=== PATIENT | female | born 2005 | race Caucasian/White ===

== ENCOUNTER 2023-08-01 15:45 | Emergency (ER) | payer OTHER, SELFPAY ==
[2023-08-01 15:47] VITALS: BP 132/78; PULSE 112; RESP 18; TEMP 36.8; BMI 27.2
[2023-08-01 15:53] VITALS: BP 132/78; PULSE 112; RESP 18; TEMP 36.8
[2023-08-01] MEDS: Amox/Clavulanate 875 MG Tablet PO (16:51)
[2023-08-01] MEDS: Diphth,Pertuss(Acell),Tet Vac 0.5 ML Vial IM (16:51)
--- NOTE | 2023-08-01 17:05 | RAD_ITS ---
STUDY: X-RAY - RIGHT HAND, ATTENTION FIRST FINGER REASON FOR EXAM: Female, 18 years old. cat bite thumb TECHNIQUE: 3 view(s) of the finger were obtained. COMPARISON: None. FINDINGS: Normal metacarpal head. Normal metacarpophalangeal joint. Normal proximal phalanx. Normal distal phalanx. Normal interphalangeal joint. No radiopaque foreign bodies. Unremarkable soft tissues. RAD/Finger(s) Min 2 Views IMPRESSION: Normal x-ray examination of the thumb. Electronically Signed: Slim Nye MD at 17:36 EST ,
--- NOTE | 2023-08-01 17:22 | EDS_ITS ---
<Statement entered by Arleen Sweeney MD - 08/02/23 00:01> I have personally performed a face to face assessment of the patient and have reviewed the HOA Note. Patient presents secondary to cat bite to the right hand. She was helping hold a cat that was being groomed when it turned and bit her in the hand. Patient sitting upright in bed no acute distress. Right upper extremity examination significant for puncture wound to the thenar eminence near the MCP joint. No focal tenderness over the flexor or extensor tendons. Full range of motion. Right thumb x-ray obtained and reveals no obvious radiopaque foreign body. Patient treated with antibiotics. Given return instructions. HPI History of Present Illness Chief Complaint: Bite Narrative Narrative: Patient presenting due to a cat bite to her right thumb that she got this afternoon while at work. 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 Cat bit her right thumb. Cat is up-to-date with vaccinations including rabies. Patient reports that her tetanus is not up-to-date. She denies any other injury. [facility] Medical History Anxiety POTS (postural orthostatic tachycardia syndrome) Syncope Home Medications cetirizine 10 mg capsule (Zyrtec) 10 mg PO DAILY PRN 04/28/23 [History Last Taken Unknown] citalopram 30 mg capsule 30 mg PO DAILY 04/28/23 [History Last Taken Unknown] levonorgestrel 0.15 mg-ethinyl estradiol 0.03 mg tablet See Rx Instructions PO .COMPLEX 04/28/23 [History Last Taken Unknown] metoprolol tartrate 25 mg tablet 25 mg PO BID #180 tabs 06/18/23 [Rx Last Taken Unknown] amoxicillin 875 mg-potassium clavulanate 125 mg tablet 1 tab PO BID #13 tabs 08/01/23 [Rx Last Taken Unknown] fluconazole 100 mg tablet (Diflucan) 150 mg (1.5 x 100 mg) PO DAILY 1 day #2 tabs 08/01/23 [Rx Last Taken Unknown] Allergy/AdvReac Type Severity Reaction Status Date / Time sulfamethoxazole Allergy Intermediate Rash Verified 08/01/23 15:47 [From Bactrim] trimethoprim [From Bactrim] Allergy Mild Rash Verified 08/01/23 15:47 Family History Other Colon cancer Hyperthyroidism Surgical History History of kidney surgery Social History Smoking Status: Never smoker alcohol intake: never substance use type: does not use ROS ROS ED Constitutional Constitutional ED: Denies chills or fever(s) Cardiovascular Cardiovascular: Denies chest pain Respiratory/Chest Respiratory/Chest: Denies cough or dyspnea Gastrointestinal Gastrointestinal: Denies abdominal pain, nausea or vomiting Musculoskeletal Musculoskeletal: Denies arthralgias or myalgias Integumentary Reports wounds Neurologic Neurologic: Denies paresthesias EXAM Physical Exam Const Vital Signs: 08/01/23 15:47 08/01/23 15:53 Temperature 98.2 F 98.2 F Temperature Source Temporal Temporal Pulse Rate 112 H 112 H Respiratory Rate 18 18 Blood Pressure 132/78 H 132/78 H Blood Pressure Mean 96 96 Positive well nourished, well developed and no apparent distress General Appearance ED: well developed HEENT Reports normocephalic and head/scalp atraumatic Mouth ED: Yes moist mucous membranes normal Eyes PERRL and EOMs intact bilaterally Neck full ROM and supple Chest Wall inspection of chest normal Resp normal respiratory effort and clear to auscultation bilaterally Cardio regular rate and regular rhythm GI soft to palpation, non-tender, non-distended and no masses Back/Spine normal ROM and normal to inspection Extremity full ROM Extremity Narrative: Small puncture wound to the palmar aspect of the right first finger along the MCP joint. Full flexion and extension at the right first MCP and IP joint. No erythema, no signs of flexor tenosynovitis. No purulent discharge. No pain to palpation to the right thumb. Neuro oriented x3, CN's II-XII intact bilaterally, moves all extremities, no focal motor deficits and no sensory deficits noted Sensorium / Orientation: awake and alert Psych mental status grossly normal and thought process normal Skin no rashes or lesions noted and no wounds MDM MDM MDM Narrative Medical decision making narrative: Patient presenting due to a cat bite to her right first finger that occurred this afternoon. She is well-appearing and in no acute distress. X-ray of the right thumb will be obtained to rule out foreign body. She will be started on Augmentin with first dose here. Tetanus will be updated. She requested a prescription for Diflucan to prevent yeast infection from the antibiotic. Wound was cleaned and bandaged by nursing. Return instructions given and she will be discharged home in stable condition. Patient is comfortable with plan. Discharge Plan Triage Chief Complaint: Bite ED Midlevel Provider: Omaira Hirsch ED Provider: Arleen Sweeney Dx/Rx/DC Orders Clinical Impression: Cat bite of finger Instructions: ED Cat Bite Prescriptions: New amoxicillin-pot clavulanate 875-125 mg tablet 1 tab PO BID Qty: 13 0RF fluconazole [Diflucan] 100 mg tablet 150 mg PO DAILY 1 Days Qty: 2 0RF No Action citalopram 30 mg capsule 30 mg PO DAILY levonorgestrel-ethinyl estrad 0.15-0.03 mg tablet See Rx Instructions PO .COMPLEX Rx Instructions: take 1 tablet daily following the order on blister card(s) PO Zyrtec 10 mg capsule 10 mg PO DAILY PRN metoprolol tartrate 25 mg tablet 25 mg PO BID Qty: 180 3RF Primary Care Provider: Zhao Webber Referrals: hZao Webber MD [Primary Care Provider] - Activity Restrictions/Additional Instructions: Please return for any worsening of your symptoms. Disposition Disposition: Home, Self Care
--- OUTSIDE RECORDS SUMMARY | 2023-08-01 19:10 | XMS RPT_ITS | CCD ---
Author Name Unknown Address [address] [place] [address] Organization [facility] Care Team Providers Care Regional Clinical Director Name Role Phone Saniya Colindres Unavailable Unavailable Unavailable Jens, Ms. Kothari Thu Primary Care UnavailALEXANDER Soliz Attending Unavailable Redick, Ms. Kothari Thu Primary Care UnavailALEXANDER Soliz Attending Unavailable Redick, Ms. Kothari Thu Primary Care Unavailabl e Jens, Ms. Kothari Thu Attending Unavailabl e Jens, Ms. Kothari Thu Primary Care Unavailshaji e ALEXANDER MEI Attending Unavailable Redick, Ms. Kothari Thu Primary Care UnavailDr. Alexander Soliz Attending Unavailable Mario, Dr. Munoz Referring Unavailable Redick, Ms. Kothari Thu Primary Care Dr. Galina Sawyer Attending Unavailab carol ann Wiseman, Dr. Galina Andino Referring Unavailab le Allergies Allergy Classification Reported Allergen(s) Allergy Type Date of Onset Reaction(s) Facility (8 sources) Sulfamethoxazole / Trimethoprim; Translations: [Bactrim] Drug Allergy [facility] Work Phone: Medications Completed/Discontinued Medications Medication Drug Class(es) Dates Sig (Normalized) Sig (Original) citalopram 10 mg oral tablet (14 sources) Serotonin Reuptake Inhibitor Citalopram Hydrobromide 20 MG Oral Tablet Quantity: 0 Refills: 0 Ordered: 06-Aug-2021 DO Active Problems Problem Classification Problem Date Documented Da te Episodic/Chronic Abdominal pain (12 sources) Abdominal pain; Translations: [Abdominal pain, unspecified site] Onset: 01-02-2022 Episodic Cardiac dysrhythmias (4 sources) Palpitations; Translations: [Palpitations] Episodic Immunizations and screening for infectious disease (6 sources) Patient encounter status; Translations: [Screening examination for venereal disease] Episodic Nausea and vomiting (8 sources) Nausea and vomiting; Translations: [Nausea with vomiting] Episodic Nonspecific chest pain (1 source) Chest pain, unspecified; Translations: [Chest pain, unspecified] Onset: 03-01-2022 Episodic Other female genital disorders (8 sources) Abnormal uterine bleeding; Translations: [Unspecified disorders of menstruation and other abnormal bleeding from female genital tract] Chronic Syncope (9 sources) Syncope and collapse; Translations: [Syncope and collapse] Onset: 03-01-2022 Episodic Results Test Name Value Interpretation Reference Range Facil ity Vital Signs Date Time Vital Sign Value Performing Clinician Faci lity 07-31-2022 14:19-0500 Body height 168 cm Saniya A Redick Work Phone: [employer] Work Phone: 07-31-2022 14:19-0500 Body mass index (BMI) [Ratio] 23.79 kg/m2 Saniya A Redick Work Phone: [employer] Work Phone: 07-31-2022 14:19-0500 Body surface area Derived from formula 1.76 m2 Saniya A Redick Work Phone: [employer] Work Phone: 07-31-2022 14:19-0500 Body weight 67.13 kg Saniya A Redick Work Phone: [employer] Work Phone: 07-31-2022 14:19-0500 Diastolic blood pressure 80 mm[Hg] Saniya A Redick Work Phone: [employer] Work Phone: 07-31-2022 14:19-0500 Systolic blood pressure 110 mm[Hg] Saniya A Redick Work Phone: [facility] Work Phone: 07-31-2022 14:19-0500 79 [phone] Saniya A Redick Work Phone: [facility] Work Phone: Encounters Encounter Date Encounter Type Care Provider Facility Start: 02-21-2023 ambulatory Ms. Saniya Andino Redick Fa cility:[id number] Start: 07-31-2022 ambulatory Ms. Saniya Andino Redick Fa cility:[id number] Start: 07-31-2022 Patient encounter procedure Saniya A Redick Work Phone: [facility] [employer] Work Phone: Start: 03-11-2022 AUDIT Saniya A Redick Work Phone: [place] [phone] [employer] Work Phone: Start: 03-07-2022 ambulatory Ms. Saniya Andino Redick Fa cility:[id number] Start: 03-01-2022 ambulatory Ms. Saniya Thu Redick Fa cility:[id number] Start: 02-22-2022 ambulatory Ms. Saniya Thu Redick Fa cility:[id number] Start: 02-22-2022 Office outpatient ne w 45 minutes Saniya A Redick Work Phone: [place] [phone] [employer] Work Phone: Start: 01-02-2022 ambulatory Ms. Saniya Andino Redick Fa cility:[id number] Start: 08-06-2021 Office outpatient vi sit 10 minutes Saniya A Redick Work Phone: [facility] [employer] Work Phone: Start: 07-23-2021 AUDIT Saniya A Redick Work Phone: [facility] [employer] Work Phone: Menarche Saniya A Redick Work Phone: [place] [phone] [employer] Work Phone: Procedures Date Procedure Procedure Detail Performing Clinician Start: 03-01-2022 Echocardiography Saniya Colindres Work Phone: Kidney operation Saniya Davis ick Work Phone: Plan of Treatment Date Care Activity Detail Author Start: 02-21-2023 FUV, Provider: Alexander Mei, Status: Pen, Time: 8:30 AM FUV, Provider: Alexander Mei, Status: Pen, Time: 8:30 AM [id number] Work Phone: Start: 08-07-2022 Patient encounter procedure ANNUAL, Provider: Indra Arreaga, Status: Pen, Time: 11:15 AM [employer] Work Phone: Start: 03-11-2022 NPV, Provider: Babak Hilliard, Status: Pen, Time: 3:15 PM NPV, Provider: Babak Hilliard, Status: Pen, Time: 3:15 PM [id number] [address] Work Phone: Start: 03-01-2022 ECHO, Provider: DAMIAN HHVI ECHO 1,SMCECHO1, Status: Pen, Time: 1:00 PM ECHO, Provider: DAMIAN ARREGUINI ECHO 1,SMCECHO1, Status: Pen, Time: 1:00 PM [id number] [address] [employer] Work Phone: Start: 08-06-2021 FUV, Provider: Indra Arreaga, Status: Pen, Time: 11:30 AM FUV, Provider: Indra Arreaga, Status: Pen, Time: 11:30 AM [employer] Work Phone: Payers Date Payer Category Payer Unknown [id number] 2003 Unknown [id number] 2003 Unknown [id number] [id number] 2003 Unknown [id number] 2003 Unknown [id number] 2.16.8 [id number] 2003 Unknown [id number] [id number]. [id number] 2003 Unknown [id number] [id number] Unknown Unknown [id number] Social History Date Type Detail Facility Never a smoker Never a smoker [facility]-[address] Work Phone: History of Present illness Narrative 09-07-2020 Note Date & Type Note Facility 09-07-2020 History of Present illness Narrative 16-year-old female with no significant medical history here for evaluation of the following complaints:Syncope-Patient has had 2 episodes September 2020 in January 2022. The first episode was in the setting of the patient taking a shower; the second 1 was after a meal.Patient notes that she got dizzy/warm to the face/lightheaded followed by 1-2 seconds of unconsciousness after which she remained regained consciousness. Outside of these episodes she also notes some dizziness lightheadedness with postural changes. No clear exertional angina/dyspnea. No lower extremity edema.EKG performed in clinic today shows normal sinus rhythm [id number] [address] Work Phone: History of Present illness Narrative 09-07-2020 Note Date & Type Note Facility 09-07-2020 History of Present illness Narrative 16-year-old female with no significant medical history here for evaluation of the following complaints:Syncope-Patient has had 2 episodes September 2020 in January 2022. The first episode was in the setting of the patient taking a shower; the second 1 was after a meal.Patient notes that she got dizzy/warm to the face/lightheaded followed by 1-2 seconds of unconsciousness after which she remained regained consciousness. Outside of these episodes she also notes some dizziness lightheadedness with postural changes. No clear exertional angina/dyspnea. No lower extremity edema.EKG performed in clinic today shows normal sinus rhythm [facility] Work Phone: History of Present illness Narrative Note Date & Type Note Facility History of Present illness Narrative Same thing 6-year-old G0 presents for control refill. Patient is no acute concerns. Patient presents with acute refill. Patient not sexually active. Patient believes she got the HPV vaccine. Patient being of high school graduate and going to [employer]. Patient bittersweet about finishing high school but excited for the new opportunities. Patient is no other acute concerns [address] Work Phone: Family History No Family History Records FoundUnknown Family Member Name Dates Details Family history of malignant neoplasm of colon: Grandparent(V16.0, Z80.0) Status:Active Family history of hyperthyro idism: Father(V18.19, Z83.49) Status:Active Unknown Family Member Name Dates Details Family history of hyperthyro idism: Father(V18.19, Z83.49) Status:Active Family history of malignant neoplasm of colon: Grandparent(V16.0, Z80.0) Status:Active Unknown Family Member Name Dates Details Family history of malignant neoplasm of colon: Grandparent(V16.0, Z80.0) Status:Active Family history of hyperthyro idism: Father(V18.19, Z83.49) Status:Active Unknown Family Member Name Dates Details Family history of malignant neoplasm of colon: Grandparent(V16.0, Z80.0) Status:Active Family history of hyperthyro idism: Father(V18.19, Z83.49) Status:Active Unknown Family Member Name Dates Details Family history of malignant neoplasm of colon: Grandparent(V16.0, Z80.0) Status:Active Family history of hyperthyro idism: Father(V18.19, Z83.49) Status:Active Unknown Family Member Name Dates Details Family history of malignant neoplasm of colon: Grandparent(V16.0, Z80.0) Status:Active Family history of hyperthyro idism: Father(V18.19, Z83.49) Status:Active Unknown Family Member Name Dates Details Family history of malignant neoplasm of colon: Grandparent(V16.0, Z80.0) Status:Active Family history of hyperthyro idism: Father(V18.19, Z83.49) Status:Active Unknown Family Member Name Dates Details Family history of malignant neoplasm of colon: Grandparent(V16.0, Z80.0) Status:Active Family history of hyperthyro idism: Father(V18.19, Z83.49) Status:Active Chief Complaint PT IS HERE TODAY FOR B/C REFILL. HAS NO CONCERNS. LMP: 07/26/2021yncopeSyncope Summary Purpose Advance Directives No Advanced Directives Records FoundNo Advanced Directives Records FoundNo Advanced Directives Records FoundNo Advanced Directives Records Found Additional Source Comments INFORMATION SOURCE (unrecogn ized section and content) DATE CREATED AUTHOR AUTHOR'S ORGANIZ ATION 03/09/2022 [facility] DATE CREATED AUTHOR AUTHOR'S ORGANIZ ATION 08/01/2022 [facility] DATE CREATED AUTHOR AUTHOR'S ORGANIZ ATION 02/23/2023 [facility], [place], operated by [facility] FOR RECORDS PERTAINING TO PATIENTS WHO ARE OR HAVE BEEN ENROLLED IN A CHEMICAL DEPENDENCY/SUBSTANCEABUSE PROGRAM, SOME INFORMATION MAY BE OMITTED. This clinical summary was aggregated from multiple sources. Caution should be exercised in using it in the provision of clinical care. This summary normalizes information from multiple sources, and as a consequence, information in this document may materially change the coding, format and clinical context of patient data. In addition, data may be omitted in some cases. CLINICAL DECISIONS SHOULD BE BASED ON THE PRIMARY CLINICAL RECORDS. [facility]. provides no warranty or guarantee of the accuracy or completeness of information in this document.
== END 2023-08-01 17:32 | disposition home or self-care (01) ==
PROVIDERS: Emergency Provider Emergency Medicine; PCP Pediatrics; Visit Provider Emergency Medicine
DX: S61.051A Open bite of right thumb without damage to nail, initial encounter (principal); W55.01XA Bitten by cat, initial encounter; Y93.K3 Activity, grooming and shearing an animal; Y92.89 Other specified places as the place of occurrence of the external cause; F41.9 Anxiety disorder, unspecified; Z79.899 Other long term (current) drug therapy; Z23 Encounter for immunization
CPT/HCPCS: 73140; 90471; 90715; 99283

== ENCOUNTER → 2023-12-16 | Outpatient (CLI) | payer OTHER, SELFPAY ==
[2023-12-16 16:47] LABS: Anion Gap 5 (5-15); BUN 9 mg/dL (7-18); BUN/Creat Ratio 10.6 RATIO (10-20); Calcium,Total 9.3 mg/dL (8.5-10.1); Chloride 108 mmol/L (98-107); Creatinine, Serum 0.85 mg/dL (0.55-1.02); EST Glomerular Filtration Rate 90 mL/min (>60); Est Glom Filt Rate - Afr Amer 109 mL/min (>60); Glucose 90 mg/dL (74-106); Potassium 3.7 mmol/L (3.5-5.1); Sodium Level 139 mmol/L (136-145)
== END | disposition home or self-care (01) ==
LOC: LAB 15:34
PROVIDERS: PCP Pediatrics; Referring Provider Family Medicine; Visit Provider Family Medicine
DX: N13.5 Crossing vessel and stricture of ureter without hydronephrosis (principal)
CPT/HCPCS: 36415; 80048

== ENCOUNTER → 2024-01-29 | Outpatient (CLI) | payer OTHER, SELFPAY | END | disposition home or self-care (01) | PROVIDERS: PCP Pediatrics; Referring Provider Physician Assistant Medical; Visit Provider Physician Assistant Medical | DX: R00.0 Tachycardia, unspecified (principal); R07.9 Chest pain, unspecified; G90.A Postural orthostatic tachycardia syndrome [POTS] | CPT/HCPCS: 93225; 93226 ==

== ENCOUNTER → 2025-01-10 | Outpatient (CLI) | payer OTHER, SELFPAY ==
[2025-01-10 15:38] LABS: hCG Titer Quant., Serum < 1 mIU/mL (<9 non-preg)
== END | disposition home or self-care (01) ==
PROVIDERS: PCP Family Medicine; Referring Provider Nurse Practitioner Family; Visit Provider Nurse Practitioner Family
DX: Z12.4 Encounter for screening for malignant neoplasm of cervix (principal)
CPT/HCPCS: 36415; 84702; 88175; G0145